=== PATIENT | male | born 1970 | race Caucasian/White ===

== ENCOUNTER 2021-03-18 14:08 | Emergency (ER) | payer OTHER, SELFPAY ==
[2021-03-18 14:28] VITALS: BP 169/123; PULSE 98; RESP 18; TEMP 36.2; O2SAT 97
--- NOTE | 2021-03-18 17:18 | ECG_ITS ---
Measurements Intervals [place] Rate: 73 P: 49 [place]: 160 QRS: 2 QRSD: 102 T: 24 QT: 382 QTc: 421 Interpretive Statements SINUS RHYTHM CANNOT RULE OUT SEPTAL INFARCT, AGE INDETERMINATE BASELINE ARTIFACT- I, II, III, AVR, AVL, AVF ABNORMAL ECG Electronically Signed On 03-18-2021 19:49:46 [employer] by Eligio Linares D.O.
[2021-03-18 17:34] LABS: Basophils Absolute Auto 0.1 K/mm3 (0.0-0.1); Basophils Percent Auto 0.7 % (0.2-1.2); Eosinophils Absolute Auto 0.2 K/mm3 (0-0.3); Eosinophils Percent Auto 1.7 % (0-4.4); Hematocrit 49.7 % (42.0-52.0); Hemoglobin 17.4 g/dL (14.0-18.0); Immature Granulocyte Absolute 0.06 K/mm3 (0.00-0.031); Immature Granulocyte Percent A 0.7 % (0-0.5); Lymphocytes Absolute Auto 2.17 K/mm3 (0.9-3.2); Lymphocytes Percent Auto 24.7 % (18.3-44.2); Mean Corpuscular Hemoglobin 30.4 pg (26-34); Mean Corpuscular Volume 86.7 fl (80-100); Mean Platelet Volume 9.3 fl (7.4-10.4); Monocytes Absolute Auto 0.8 K/mm3 (0.1-0.6); Monocytes Percent Auto 8.8 % (2.6-8.5); Neutrophils Absolute Auto 5.6 K/mm3 (1.3-6.7); Neutrophils Percent Auto 63.4 % (45.5-73.1); Platelet Count Result 208 k/mm3 (150-375); Red Blood Count 5.73 M/mm3 (4.6-6.20); Red Cell Distribution Width 13.2 % (11.5-14.5); White Blood Count 8.8 K/mm3 (4.5-10.0)
[2021-03-18 17:38] VITALS: BP 189/124; PULSE 73; RESP 16; O2SAT 97
[2021-03-18 17:44] LABS: Alanine Aminotransferase 23 U/L (4-50); Albumin Level 4.8 g/dL (3.5-5.1); Alkaline Phosphatase 73 U/L (38-126); Anion Gap 9 mmol/L (8-16); Aspartate Amino Transferase 25 U/L (17-59); Bilirubin,Total 0.7 mg/dL (0.2-1.3); Blood Urea Nitrogen 16 mg/dL (9-20); Calcium 9.6 mg/dL (8.4-10.2); Carbon Dioxide 29 mmol/L (22-30); Chloride 105 mmol/L (98-107); Estimated CRCL calculation 75 ml/min; Estimated Glomerular Filt Rate > 60; Glucose 108 mg/dL (65-110); Sodium 143 mmol/L (137-145)
[2021-03-18 18:05] LABS: Add Urine Microscopic? NO; Appearance Urine Clear (Clear); Bilirubin Urine Negative (Negative); Blood Urine Negative (Negative); Color Urine Yellow (Yellow); Glucose Urine UA Negative (Negative); Ketones Urine Negative (Negative); Leukocyte Esterase Ur Negative LEU/UL (Negative); Nitrate Urine Negative (Negative); Protein Urine Negative (Negative); Specific Grav Ur 1.014 (1.001-1.035); Urobilinogen Urine Negative mg/dL (<2.0)
--- NOTE | 2021-03-18 18:26 | ED.RECABL ---
HPI - Recheck/Abnormal Lab/Rx General Chief Complaint: Recheck/Abnormal Lab/Rx Stated Complaint: high blood pressure Time Seen by Provider: 03/18/21 17:12 Source: patient History of Present Illness HPI narrative: Patient presents with high blood pressure. Reports he was getting a insurance physical and noted his blood pressure was systolics in the 180s he went home checked it again and systolic over 200 he was concerned so came to the ER for evaluation. Reports he feels well denies any headaches changes in vision numbness tingling weakness chest pain shortness of breath or difficulty with urination. Reports his blood pressure is usually high when he goes sees a physician but is not know the exact number. Reports has been on amlodipine for his diagnosis of hypertension has not had any changes to his medications. Related Data Allergies Allergy/AdvReac Type Severity Reaction Status Date / Time Penicillins Allergy Mild ? Verified 12/01/10 01:24 Review of Systems Review of Systems: CONSTITUTIONAL: Denies fever, chills, or sweats. EYES: Denies visual changes, redness, or discharge. ENT: Denies rhinorrhea, congestion, sore throat, or otalgia. CARDIOVASCULAR: Denies chest pain, palpitations, or edema. RESPIRATORY: Denies cough or dyspnea. GASTROINTESTINAL: Denies abdominal pain, nausea, vomiting, or diarrhea. GENITOURINARY: Denies dysuria or hematuria. SKIN: Denies rash or itching. MUSCULOSKELETAL: Denies back pain, joint pain, or myalgia. NEUROLOGIC: Denies headache, numbness, dizziness, or weakness. PSYCHIATRIC: Denies anxiety or depression. All systems reviewed & are unremarkable except as noted in HPI and below PMFSH Past Medical History Medical History (Updated 03/18/21 @ 18:32 by Darrin Greene MD) Hypertension Social History Social History (Updated 03/18/21 @ 18:27 by Darrin Greene MD) Substance use: never Exam Narrative: GENERAL: Well-appearing, well-nourished, and in no acute distress. HEAD: Normocephalic, atraumatic. EYES: PERRLA and EOMI. ENT: Nares clear, no rhinorrhea or epistaxis. Mucous membranes moist. NECK: Supple. No masses. No JVD CHEST: Clear to auscultation. No respiratory distress. No wheezes rales or rhonchi HEART: Regular rate and rhythm. No murmur heard. Normal peripheral pulses. ABDOMEN: Soft, nontender, nondistended, normal active bowel sounds. EXTREMITIES: Normal range of motion. No edema. SKIN: Warm, dry, no rash. NEURO: Cranial nerves II through XII are intact patient has 5 out of 5 strength in all extremities, sensation intact to light touch in all extremities alert and oriented x3. PSYCH: Normal mood and affect. Course Reevaluation(s) Reevaluation #1: Patient continues to be asymptomatic results and plan reviewed with patient. Patient comfortable with outpatient plan. Date: 03/18/21 Time: 18:28 Vital Signs Vital signs: Vital Signs Temperature 36.2 C L 03/18/21 14:28 Pulse Rate 98 03/18/21 14:28 Respiratory Rate 18 03/18/21 14:28 Blood Pressure 169/123 H 03/18/21 14:28 Pulse Oximetry 97 03/18/21 14:28 Temperature 36.2 C L 03/18/21 14:28 Pulse Rate 83 03/18/21 18:47 Respiratory Rate 18 03/18/21 18:47 Blood Pressure 181/118 H 03/18/21 18:47 Pulse Oximetry 96 03/18/21 18:47 MDM - Recheck/Abnormal Lab/Rx MDM Narrative Medical decision making narrative: H&P as above, vs with hypertension, pt looks clinically well, exam without focal neurological deficits, labs clinically unremarkable, EKG clinically unremarkable, additional labs/img considered, symptomatic relief available as needed, on reevaluation pt continues to looks clinically well. Suspect asymptomatic hypertension patient was educated on blood pressure log and instructed follow-up with his primary care doctor as he may need adjustments to his chronic blood pressure medication, dns hypertensive emergency, severe sepsis, cranial hemorrhage, CVA. plan to tx/monitor as op w/ pcm f/u findings
[2021-03-18 18:47] VITALS: BP 181/118; PULSE 83; RESP 18; O2SAT 96
== END 2021-03-18 18:50 | disposition home or self-care (01) ==
PROVIDERS: Emergency Provider Emergency Medicine; PCP Internal Medicine
DX: I10 Essential (primary) hypertension (principal)
CPT/HCPCS: 36415; 80053; 81003; 85025; 93005; 99283

== ENCOUNTER 2021-05-25 00:11 | Day surgery (SDC) | payer OTHER, SELFPAY ==
[2021-05-11 13:55] VITALS: BMI 22.6
[2021-05-25 07:25] VITALS: BP 126/86; PULSE 100; RESP 20; TEMP 36.1; O2SAT 100; BMI 21.8
--- NOTE | 2021-05-25 07:51 | P.PNAN_ITS ---
Anes - Initial Pre Proc Eval Procedure: Operation Date: 05/25/21 08:30 Proposed Procedures p Esophagogastroduodenoscopy & Screening Colonoscopy - Sal Gonzalez MD Date/Time: 05/25/21 07:51 Surgeon: Sal Patino MD Pre Op Diagnosis: neoplasm screening, GERD Patient Data Age: 51 Gender: M Height: 1.91 m Weight: 79.2 kg Last Vital Signs Temp 36.1 C L 05/25/21 07:25 Pulse 100 05/25/21 07:25 Resp 20 05/25/21 07:25 BP 126/86 05/25/21 07:25 Pulse Ox 100 05/25/21 07:25 Allergies Allergy/AdvReac Type Severity Reaction Status Date / Time Penicillins Allergy Mild Rash Verified 05/25/21 07:53 Home Medications Medication Instructions Recorded Confirmed Type amlodipine 10 mg PO DAILY 05/11/21 05/25/21 History atorvastatin 10 mg PO DAILY 05/11/21 05/11/21 History clonazepam 1 mg PO PRN PRN 05/11/21 05/11/21 History ergocalciferol (vitamin D2) 1 unit PO WEEKLY 05/11/21 05/11/21 History losartan 50 mg PO DAILY 05/11/21 05/11/21 History tadalafil 20 mg PO PRN PRN 05/11/21 05/11/21 History Patient hx anesthesia problems: none Family hx anesthesia problems: none Results Review: All pre-operative results and documents have been reviewed as part of the pre-operative evaluation. [facility] Past Medical History Medical History (Updated 05/25/21 @ 07:51 by Chuck Hoskins MD) Anxiety Hyperlipidemia Hypertension Surgical History Surgical History (Updated 05/25/21 @ 07:54 by Chuck Hoskins MD) H/O inguinal hernia repair Social History Social History Smoking status: Former smoker Tobacco type: cigarettes Additional smoking assessment comments: 2 packs per week Substance use: never Substance use type: does not use Living arrangements: with family Anes - Eval Final PreProcedure Day of Procedure 05/25/21 07:51 Patient weight: normal Heart: regular rate and rhythm Lungs: clear to auscultation Airway: Mallampati scale Neurological: alert and oriented Last oral intake: >/= 8 hours ASA classification: II Emergent: no Anesthetic plan: proceed Anesthesia type and monitoring: general GIVS and standard monitoring Results Review: All pre-operative results and documents have been reviewed as part of the pre-operative evaluation. Informed Consent: The patient's anesthetic plan and its attendant risks and benefits were discussed with the patient/family/POA. Questions were solicited and answers provided to the satisfaction of the patient/family/POA.
[2021-05-25] MEDS: LACTATED RINGERS 1,000 ML 150 ML IV CONT (07:52)
--- NOTE | 2021-05-25 08:47 | PM.HPGS ---
History of Present Illness History of Present Illness Consent: Risks, benefits, and alternatives have been discussed and questions answered. Patient agrees to proceed with procedure. Chief complaint: neoplasm screening, GERD Narrative: Griffin Whitley is a 51 year old male with gerd using pepcid as needed, never had scopes. Review of Systems Constitutional: Constitutional: Denies headache(s) and Denies weakness Eyes: Eyes: Denies blurry vision ENT: Reports Normal hearing present, Denies headache(s) and Denies neck pain Cardiovascular: Cardiovascular: Denies chest pain and Denies dyspnea Respiratory: Respiratory: Denies dyspnea Gastrointestinal: Gastrointestinal: Reports no additional gastrointestinal complaints Genitourinary: Genitourinary: Denies dysuria Musculoskeletal: Musculoskeletal: Denies neck pain Integumentary/Breasts: Skin/Breast: Denies dry skin Neurologic: Reports Normal hearing present, Denies headache(s) and Denies weakness Psychiatric: Psychiatric: Denies anxiety Endocrine: Endocrine: Denies change in body appearance Hematologic/Lymphatic: Hematologic/Lymphatic: Denies easy bleeding Allergic/Immunologic: Allergic/Immunologic: Denies urticaria PMF Past Medical History Medical History (Updated 05/25/21 @ 08:47 by Sal Patino MD) Anxiety Colon cancer screening GERD (gastroesophageal reflux disease) Hyperlipidemia Hypertension Surgical History Surgical History (Updated 05/25/21 @ 07:54 by Chuck Hoskins MD) H/O inguinal hernia repair Social History Social History Smoking status: Former smoker Tobacco type: cigarettes Additional smoking assessment comments: 2 packs per week Substance use: never Substance use type: does not use Living arrangements: with family Meds Home Medications and Allergies Home Medications Medication Instructions Recorded Confirmed Type amlodipine 10 mg PO DAILY 05/11/21 05/25/21 History atorvastatin 10 mg PO DAILY 05/11/21 05/11/21 History clonazepam 1 mg PO PRN PRN 05/11/21 05/11/21 History ergocalciferol (vitamin D2) 1 unit PO WEEKLY 05/11/21 05/11/21 History losartan 50 mg PO DAILY 05/11/21 05/11/21 History tadalafil 20 mg PO PRN PRN 05/11/21 05/11/21 History Allergies Allergy/AdvReac Type Severity Reaction Status Date / Time Penicillins Allergy Mild Rash Verified 05/25/21 07:53 Vital Signs Vital Signs - 24 hr 05/25/21 07:25 Temperature 97.0 F L Pulse Rate 100 Respiratory Rate 20 Blood Pressure 126/86 Pulse Oximetry 100 Exam Const: General: comfortable and no acute distress HENMT: General nose exam: Normal nares present Eyes: General: appearance normal, both eyes and all related structures Neck: Neck: no JVD Resp: Auscultation: clear to auscultation bilaterally Cardio: Rate: regular rate Rhythm: regular rhythm GI: Inspection: non-distended GI Palp: Yes Soft to palpation Skin: General skin exam: normal color Neuro: General: gait normal Speech: normal speech Extrem: General: normal to inspection Psych: Mental Status: mental status grossly normal Assessment and Plan Assessment and plan (1) GERD (gastroesophageal reflux disease): Code(s): K21.9 - Gastro-esophageal reflux disease without esophagitis Status: Acute Assessment and Plan: egd with bx (2) Colon cancer screening: Code(s): Z12.11 - Encounter for screening for malignant neoplasm of colon Status: Acute Assessment and Plan: colonoscopy
--- NOTE | 2021-05-25 09:29 | SUR.OPER ---
EGD START 901, END 905 COLONOSCOPY START 911, END 923
[2021-05-25 09:30] VITALS: BP 93/61; PULSE 83; RESP 21; O2SAT 95
[2021-05-25 09:40] VITALS: BP 96/63; PULSE 82; RESP 24; O2SAT 95
[2021-05-25 09:50] VITALS: BP 111/72; PULSE 81; RESP 24; O2SAT 98
== END 2021-05-25 10:06 | disposition home or self-care (01) ==
PROVIDERS: PCP Physician Assistant; Visit Provider Internal Medicine Gastroenterology
PROC: 0DJ08ZZ Inspection of Upper Intestinal Tract, Via Natural or Artificial Opening Endoscopic (ICD-10-PCS; CPT 43235; principal; 2021-05-25 08:30)
DX: Z12.11 Encounter for screening for malignant neoplasm of colon (principal); D12.2 Benign neoplasm of ascending colon; K57.30 Diverticulosis of large intestine without perforation or abscess without bleeding; K64.8 Other hemorrhoids; K21.00 Gastro-esophageal reflux disease with esophagitis, without bleeding; K22.2 Esophageal obstruction; K44.9 Diaphragmatic hernia without obstruction or gangrene; K29.50 Unspecified chronic gastritis without bleeding; I10 Essential (primary) hypertension; E78.5 Hyperlipidemia, unspecified; F41.9 Anxiety disorder, unspecified; Z87.891 Personal history of nicotine dependence
CPT/HCPCS: 45385; 43239; 88305; J2704; J7120

== ENCOUNTER 2024-04-10 09:35 | Outpatient (CLI) | payer OTHER, SELFPAY ==
[2024-05-03 15:14] VITALS: BMI 20.6
--- NOTE | 2024-05-03 15:14 | P.SLEEP_ITS ---
Sleep Study - Home Unattended Date of Study: 04/10/24 Ordering Provider: Carline Gaytan, PAMarley Interpreting Provider: Georgia Park DO Home Sleep Study Type: Watch PAT Height: 1.91 m Weight: 74.843 kg Body Mass Index: 20.6 Neck Circumference (inches): 15 [place]: 0 Reason for Sleep Study Snoring, daytime hypersomnia Sleep History The patient is a 54-year-old male that had a sleep study ordered by his primary care for evaluation of sleep apnea. The patient admits to snoring loudly, excessive daytime sleepiness and interruptions and breathing while asleep. He does admit to choking or gasping at night. He denies having trouble breathing on his back. He denies morning headaches. He does admit to having a dry or sore mouth/ throat in the morning. He denies nocturnal heartburn. He denies nocturia. He denies having difficulty falling or staying asleep. He denies having difficulty returning to sleep if he wakes up throughout the night. He denies any hypnotic or sedative use. He denies feeling anxious about sleep. He denies feeling tired or sleepy during the day. He denies feeling tired in the morning. He denies having the urge to fall asleep during the day. He denies feeling drowsy while driving. The denies sleep paralysis, cataplexy and hypnagogic / hypnopompic hallucinations. He denies clinching her grinding his teeth at night. He denies kicking or jerking his legs excessively. He denies having restless feelings legs. He goes to bed at 9:00 p.m. on work days and at 11:00 p.m. on his days off. It to him 15 minutes to fall asleep. He typically gets 7 hours of sleep on work days and 8-1/2 hours of sleep on his days off. His sleep is much more restored on his days off. He denies taking any planned naps. He denies dream enactment behavior. He denies sleepwalking. [facility] Past Medical History Medical History Colon cancer screening GERD (gastroesophageal reflux disease) Anxiety Hyperlipidemia Hypertension Surgical History Surgical History H/O inguinal hernia repair Social History Social History Smoking status: Former smoker Tobacco type: cigarettes Additional smoking assessment comments: 2 packs per week Substance use: never Substance use type: does not use Living arrangements: with family Medications Home Medications ?Medication ?Instructions ?Recorded ?Confirmed ?Type amlodipine 10 mg tablet 10 mg PO DAILY 05/11/21 05/25/21 History atorvastatin 10 mg tablet 10 mg PO DAILY 05/11/21 05/11/21 History clonazepam 1 mg tablet 1 mg PO PRN PRN Anxiety 05/11/21 05/11/21 History ergocalciferol (vitamin D2) 1,250 1 unit PO WEEKLY 05/11/21 05/11/21 History mcg (50,000 unit) capsule losartan 50 mg tablet 50 mg PO DAILY 05/11/21 05/11/21 History tadalafil 20 mg tablet 20 mg PO PRN PRN Erectile 05/11/21 05/11/21 History Dysfunction omeprazole 20 mg capsule,delayed See Rx Instructions .Route 12/10/21 Rx release .COMPLEX #30 caps Sleep Procedure The sleep study was completed using [email or web address] a technically adequate device with seven channels: peripheral arterial tone, actigraphy, body position, snore, respiratory movement, pulse oximetry, sleep staging, and heart rate. Prior to using the device, the patient received verbal and written instructions for its application and was provided with the help desk phone number for additional telephonic instruction with 24-hour availability of qualified personnel to answer questions. The study was scored using CMS guidelines. Sleep Architecture The total recording time is 7 hrs, 18 min. The total sleep time is 6 hrs, 41 min. Sleep latency is 10 minutes. REM latency is 67 minutes. The patient had 7 episodes of waking. Sleep architecture shows 18.1% deep sleep, 64.0% light sleep, and (as % Total Sleep Time) showed NREM (Light 64.0%; Deep 18.1%), and a 17.9% stage REM. The patient spent 100.0% of total sleep time in the supine position. Sleep efficiency was 91.55. Respiratory Analysis The overall AHI (pAHI 4%:) is 0.2. The central AHI is 0.0. The AHI was 0.2 in NR EM and 0.0 in REM sleep. The AHI was 0.2 in Supine and N/A in Non-supine sleep. Percent of Joesph Coto respirations is 0.0. Oximetry Data The oxygen desaturation index (JAI 4%:) is 0.2. The mean saturation is 93%, and the lowest saturation is 91%. Time spent with saturation < 88% is 0.0 minutes. Snoring Profile Snoring average intensity is 40 dB. The patient snored above 45 decibels for 5.9 minutes, 1.5% of sleep time. Cardiac Profile The average pulse rate is 62 beats per minutes. The lowest pulse rate is 51 bpm. The highest pulse rate reported is 90 bpm. Atrial fibrillation was not detected. Premature beats occur <0.1 per minute. Assessment and Plan Assessment and Plan (1) Snoring: Code(s): R06.83 - Snoring Status: Acute Assessment and Plan: The patient had an overall AHI of 0.2 with desaturation down to 91%. This is not consistent with sleep-disordered breathing. Data The data obtained during this sleep study is adequate for interpretation. Certification This sleep study has been reviewed by a board certified sleep medicine physician.
== END 2024-04-11 13:24 | disposition home or self-care (01) ==
PROVIDERS: PCP Physician Assistant; Visit Provider Physician Assistant
DX: G47.30 Sleep apnea, unspecified (principal); R06.83 Snoring
CPT/HCPCS: 95800